=== PATIENT | male | born 1990 | race Two or more races ===

== ENCOUNTER 2024-04-19 19:34 | Inpatient (IN) | payer OTHER ==
[~2024-04-19] VITALS: Ht 182.9 cm; Wt 102.1 kg
[2024-04-19] MEDS ORDERED: 0.9% SODIUM CHLORIDE 10 ML SYRINGE IVP PRN (23:15)
[2024-04-19] MEDS: SODIUM CHLORIDE 0.9% 3,050 ML IV ONE (23:28)
[2024-04-19] MEDS: CefTRIAXone 1 GM/DEXTROSE 50 ML IV ONE (23:29)
[2024-04-19 23:38] LABS: BASOPHILS % (AUTO) 1.1 % (0.0-2.0); EOSINOPHILS % (AUTO) 0.2 % (1.0-6.0); HEMATOCRIT 24.8 % (41-53); HEMOGLOBIN 7.7 g/dL (13.5-17.5); LYMPHOCYTES % (AUTO) 17.5 % (22.0-44.0); MEAN CORPUSCULAR HEMOGLOBIN 20.3 pg (26.0-34.0); MEAN CORPUSCULAR HGB CONC 31.1 G/dL (31.0-37.0); MEAN CORPUSCULAR VOLUME 65 fL (80-100); MONOCYTES # (AUTO) 0.9 K/uL (0.1-1.0); MONOCYTES % (AUTO) 14.9 % (2.0-9.0); NEUTROPHILS % (AUTO) 66.3 % (40.0-70.0); PLATELET COUNT (AUTO) 683 K/uL (150-450); RED BLOOD CELL COUNT(AUTO) 3.78 MIL/uL (4.50-5.90); RED CELL DISTRIBUTION WIDTH 17.2 % (11.5-14.5)
[2024-04-19 23:45] LABS: ANION GAP 13 mmol/L (8-16); CALCIUM, TOTAL 8.7 mg/dL (8.8-10.5); CARBON DIOXIDE 23 mmol/L (22-29); CHLORIDE 100 mmol/L (98-107); GLOMERULAR FILTR. RATE CALC > 60 mL/min (>60); GLUCOSE,RANDOM 100 mg/dL (70-110); SODIUM SERUM 136 mmol/L (136-145); UREA NITROGEN, BLOOD 21 mg/dL (7-18)
[2024-04-19 23:51] LABS: ALANINE AMINOTRANSFERASE 47 U/L (12-78); ALBUMIN 2.7 g/dL (3.4-5.0); ALKALINE PHOSPHATASE 167 U/L (46-116); ASPARTATE AMINOTRANSFERASE 47 U/L (15-37); BILIRUBIN,TOTAL 0.3 mg/dL (0.1-1.0); TOTAL PROTEIN, SERUM 7.5 g/dL (6.4-8.2)
[2024-04-20] VITALS (8 sets, daily range): BP systolic 110–120; BP diastolic 63–78; PULSE 77–107; RESP 18–20; TEMP 98.9–103; O2SAT 95–98
[2024-04-20 00:32] LABS: RBC MORPHOLOGY COMMENT ABNORMAL RBC MORPH
[2024-04-20] MEDS ORDERED: ZOLPIDEM TARTRATE 5 MG TABLET PO PRN (01:15)
[2024-04-20] MEDS ORDERED: MAGNESIUM HYDROXIDE SUSPENSION 30 ML UDCUP PO PRN (01:15)
[2024-04-20 03:37] LABS: APPEARANCE,URINE CLEAR (CLEAR); BILIRUBIN,URINE NEGATIVE (NEGATIVE); COLOR,URINE LIGHT YELLOW (YELLOW); GLUCOSE, URINE (UA) NEGATIVE (NEGATIVE); KETONES,URINE NEGATIVE (NEGATIVE); LEUKOCYTE ESTERASE ,URINE NEGATIVE (NEGATIVE); NITRATE,URINE NEGATIVE (NEGATIVE); OCCULT BLOOD,URINE NEGATIVE (NEGATIVE); PH,URINE 5.5 (5.0-8.0); PROTEIN,URINE TRACE mg/dL (NEGATIVE); SPECIFIC GRAVITIY, URINE 1.018 (1.003-1.030); UROBILINOGEN,URINE <=1.0 mg/dL (<=1.0)
[2024-04-20] MEDS ORDERED: SODIUM CHLORIDE 0.9% 500 ML IV ONE (03:51)
[2024-04-20] MEDS: AZITHROMYCIN 500 MG/NS 250 ML IV SCH (04:00)
[2024-04-20] MEDS: ACETAMINOPHEN 325 MG TABLET PO PRN (04:01)
[2024-04-20] MEDS ORDERED: SODIUM CHLORIDE 3% 15 ML NEB SOLUTION NEB ONE ×2 (08:16→22:02)
[2024-04-20] MEDS: FERROUS SULFATE 325 MG EC TABLET PO SCH (08:18)
[2024-04-20] MEDS: MULTIVITAMINS WITH MINERALS, THERAPEUTIC TABLET PO SCH (08:18)
[2024-04-20] MEDS: FAMOTIDINE 20 MG TABLET PO SCH (08:18)
[2024-04-20] MEDS: DOCUSATE SODIUM 100 MG CAPSULE PO SCH (08:18)
[2024-04-20 11:45] LABS: MTB-RIFAMPIN RESISTANCE NOT DETECTED (Not detectd)
[2024-04-20 12:27] LABS: MTB PCR w/Rif. Resistance-SPUT DETECTED (Not Detectd)
[2024-04-20] MEDS: *CLINICAL-RX DOSING [ENTER DRUG IN COMMENTS] CLINICAL ONE (12:43)
[2024-04-20] MEDS: RIFAMPIN 300 MG CAPSULE PO SCH (15:36)
[2024-04-20] MEDS: ETHAMBUTOL HCL 400 MG TABLET PO SCH (15:37)
[2024-04-20] MEDS: ISONIAZID 300 MG TABLET PO SCH (15:37)
[2024-04-20] MEDS: PYRAZINAMIDE 500 MG TABLET PO SCH (15:38)
[2024-04-20] MEDS: CefTRIAXone 1 GM/DEXTROSE 50 ML IV SCH (23:36)
[2024-04-21 00:35] VITALS: TEMP 100.3
[2024-04-21 02:07] LABS: HIV 1-2 SCREEN 4TH GEN W/RFLX Non Reactive (Non Reactive)
[2024-04-21 04:30] VITALS: BP 104/65; PULSE 71; RESP 18; TEMP 98.4; O2SAT 99
[2024-04-21 11:03] VITALS: BP 107/58; PULSE 88; RESP 18; TEMP 98.3; O2SAT 98
[2024-04-21 16:03] LABS: MTB-RIFAMPIN RESISTANCE NOT DETECTED (Not detectd)
[2024-04-21 16:33] LABS: MTB PCR w/Rif. Resistance-SPUT DETECTED (Not Detectd)
[2024-04-21 21:44] VITALS: BP 126/77; PULSE 96; RESP 17; TEMP 98; O2SAT 98
[2024-04-22 04:05] VITALS: BP 118/68; PULSE 79; RESP 18; TEMP 98.8; O2SAT 97
[2024-04-22 07:42] LABS: INR 1.1 (0.9-1.1); PROTHROMBIN TIME 11.8 SEC (9.4-11.6)
[2024-04-22 08:40] VITALS: BP 116/60; PULSE 78; RESP 20; TEMP 98.6; O2SAT 96
[2024-04-22] MEDS: PYRIDOXINE HCL 50 MG TABLET PO SCH (17:17)
[2024-04-22 22:51] VITALS: BP 110/65; PULSE 75; RESP 18; TEMP 98.3; O2SAT 97
[2024-04-23 05:32] VITALS: BP 107/55; PULSE 81; RESP 18; TEMP 98.2; O2SAT 97
[2024-04-23 08:06] LABS: QUANTIFERON+, Nil Value 0.44 IU/mL; QUANTIFERON+,Mitogen Value 1.22 IU/mL; QUANTIFERON+,TB1 Antigen Value 1.99 IU/mL; QUANTIFERON+,TB2 Antigen Value 4.82 IU/mL; QUANTIFERON, TB GOLD PLUS Positive (Negative)
[2024-04-23 16:43] LABS: EOSINOPHILS % (AUTO) 5.8 % (1.0-6.0); HEMATOCRIT 30.2 % (41-53); HEMOGLOBIN 9.2 g/dL (13.5-17.5); LYMPHOCYTES % (AUTO) 16.9 % (22.0-44.0); MEAN CORPUSCULAR HGB CONC 30.4 G/dL (31.0-37.0); MEAN CORPUSCULAR VOLUME 66 fL (80-100); MONOCYTES # (AUTO) 0.7 K/uL (0.1-1.0); MONOCYTES % (AUTO) 11.1 % (2.0-9.0); NEUTROPHILS % (AUTO) 65.2 % (40.0-70.0); PLATELET COUNT (AUTO) 711 K/uL (150-450); RED CELL DISTRIBUTION WIDTH 17.2 % (11.5-14.5); WHITE BLOOD COUNT (AUTO) 6.2 K/uL (4.5-11.0)
[2024-04-23 16:56] LABS: PLATELET MORPHOLOGY COMMENT LARGE PLTS PRESENT; RBC MORPHOLOGY COMMENT ABNORMAL RBC MORPH
[2024-04-23 19:46] VITALS: BP 141/82; PULSE 89; RESP 18; TEMP 99.7; O2SAT 98
[2024-04-24 08:11] VITALS: BP 115/59; PULSE 82; RESP 20; TEMP 98.1; O2SAT 98
[2024-04-24 22:08] VITALS: BP 133/76; PULSE 84; RESP 17; TEMP 98.4; O2SAT 98
[2024-04-25 19:40] VITALS: BP 125/65; PULSE 95; RESP 18; TEMP 98.3; O2SAT 96
[2024-04-26] VITALS (7 sets, daily range): BP systolic 118–137; BP diastolic 68–79; PULSE 74–100; RESP 18–20; TEMP 97.8–99; O2SAT 99–100
[2024-04-26] MEDS ORDERED: LIDOCAINE/PF 1% 30 ML VIAL ONE (11:28)
[2024-04-26] MEDS ORDERED: FentaNYL CITRATE PF 100 MCG/2 ML VIAL ONE (11:32)
[2024-04-26] MEDS ORDERED: MIDAZOLAM HCL 2 MG/2 ML VIAL ONE (11:32)
[2024-04-26] MEDS: MIDAZOLAM HCL 2 MG/2 ML VIAL IVP ONE (13:47)
[2024-04-26] MEDS: LIDOCAINE 1% 30 ML/SOD BICARB 8.4% 4 ML SQ ONE (13:47)
[2024-04-26] MEDS: HYDROCODONE/ACETAMINOPHEN 5-325 MG TABLET PO PRN (13:47)
[2024-04-26] MEDS: FentaNYL CITRATE PF 100 MCG/2 ML VIAL IVP ONE (13:47)
[2024-04-26 14:04] LABS: SPECIMENTYPE,BODY FLUID PLEURAL
[2024-04-26 14:28] LABS: APPEARANCE,UNSPUN,BODY FLUID HAZY (CLEAR)
[2024-04-26 14:29] LABS: APPEARANCE,SPUN,BODY FLUID CLEAR (CLEAR); COLOR,BODY FLUID YELLOW (LT YELLOW); TOTAL VOLUME,BODY FLUID 75 mL
[2024-04-26 15:08] LABS: BASOPHILS,BODY FLUID 0 %; EOSINOPHILS,BF (ANAL) 0 %; LYMPHOCYTES,BODY FLUID 74 %; MONOCYTES,BODY FLUID 9 %; NEUTROPHILS,BODY FLUID 1 %; OTHER CELLS,BODY FLUID MESOTHELIALS; WBC, BODY FLUID 930 /cu. mm.
[2024-04-26 15:15] LABS: PH, BODY FLUID 8
[2024-04-27 04:25] VITALS: BP 112/70; PULSE 86; RESP 18; TEMP 98.1; O2SAT 97
[2024-04-27 09:24] VITALS: BP 113/75; PULSE 79; RESP 20; TEMP 97.6; O2SAT 98
[2024-04-27 13:08] LABS: TOTAL PROTEIN,BODY FLUID,REF 5.9 g/dL; URIC ACID, BODY FLUID,REF 14.3 mg/dL
[2024-04-27] MEDS: MORPHINE SULFATE 2 MG/ML SYRINGE IVP PRN (13:41)
[2024-04-27 20:20] VITALS: BP 110/94; PULSE 101; RESP 19; TEMP 97.9; O2SAT 97
[2024-04-28 05:12] VITALS: BP 115/69; PULSE 79; RESP 18; TEMP 98.2; O2SAT 99
[2024-04-28] MEDS: HYDROCODONE/ACETAMINOPHEN 5-325 MG TABLET PO PRN (06:36)
[2024-04-28 08:19] VITALS: BP 119/73; PULSE 82; RESP 20; TEMP 98.3; O2SAT 98
[2024-04-28 20:15] VITALS: BP 131/69; PULSE 79; RESP 18; TEMP 98.2; O2SAT 98
[2024-04-29 05:15] VITALS: BP 140/72; PULSE 79; RESP 16; TEMP 98.6; O2SAT 100
[2024-04-29 07:11] LABS: BASOPHILS % (AUTO) 1.1 % (0.0-2.0); HEMATOCRIT 31.6 % (41-53); HEMOGLOBIN 9.8 g/dL (13.5-17.5); LYMPHOCYTES % (AUTO) 14.8 % (22.0-44.0); MEAN CORPUSCULAR HEMOGLOBIN 20.6 pg (26.0-34.0); MEAN CORPUSCULAR HGB CONC 30.9 G/dL (31.0-37.0); MEAN CORPUSCULAR VOLUME 67 fL (80-100); MONOCYTES # (AUTO) 0.6 K/uL (0.1-1.0); MONOCYTES % (AUTO) 9.9 % (2.0-9.0); NEUTROPHILS # (AUTO) 4.3 K/uL (1.8-7.7); NEUTROPHILS % (AUTO) 66.2 % (40.0-70.0); PLATELET COUNT (AUTO) 605 K/uL (150-450); RED BLOOD CELL COUNT(AUTO) 4.73 MIL/uL (4.50-5.90); RED CELL DISTRIBUTION WIDTH 18.4 % (11.5-14.5); WHITE BLOOD COUNT (AUTO) 6.5 K/uL (4.5-11.0)
[2024-04-29 07:25] LABS: ANION GAP 12 mmol/L (8-16); CALCIUM, TOTAL 8.8 mg/dL (8.8-10.5); CARBON DIOXIDE 25 mmol/L (22-29); CHLORIDE 100 mmol/L (98-107); CREATININE 0.92 mg/dL (0.60-1.30); GLOMERULAR FILTR. RATE CALC > 60 mL/min (>60); GLUCOSE,RANDOM 89 mg/dL (70-110); POTASSIUM 4.2 mmol/L (3.5-5.1); SODIUM SERUM 137 mmol/L (136-145); UREA NITROGEN, BLOOD 12 mg/dL (7-18)
[2024-04-29 08:22] LABS: RBC MORPHOLOGY COMMENT ABNORMAL RBC MORPH
[2024-04-29 12:00] VITALS: BP 134/70; PULSE 75; TEMP 98.5; O2SAT 100
[2024-04-29 17:07] VITALS: BP 112/76; PULSE 76; TEMP 98.7; O2SAT 100
[2024-04-29 19:50] VITALS: BP 136/77; PULSE 87; RESP 18; TEMP 98.2; O2SAT 99
[2024-04-30 04:05] VITALS: BP 123/71; PULSE 68; RESP 18; TEMP 98.8; O2SAT 98
[2024-04-30 12:00] VITALS: BP 127/73; PULSE 85; RESP 18; TEMP 98.3; O2SAT 98
[2024-04-30 17:30] VITALS: BP 118/75; PULSE 72; RESP 18; TEMP 98.2; O2SAT 98
[2024-04-30 19:45] VITALS: BP 120/77; PULSE 92; RESP 16; TEMP 98.7; O2SAT 99
[2024-05-01 09:11] VITALS: BP 123/68; PULSE 83; RESP 16; TEMP 97.6; O2SAT 98
[2024-05-01 19:53] VITALS: BP 128/71; PULSE 93; RESP 18; TEMP 98.3; O2SAT 96
[2024-05-02 05:23] VITALS: BP 117/70; PULSE 67; RESP 18; TEMP 98.1; O2SAT 99
[2024-05-02 09:02] VITALS: BP 110/61; PULSE 87; RESP 18; TEMP 97.8
[2024-05-02 19:41] VITALS: BP 123/69; PULSE 84; RESP 18; TEMP 98.3; O2SAT 97
[2024-05-03 06:20] VITALS: BP 117/68; PULSE 73; RESP 20; TEMP 98.4; O2SAT 97
[2024-05-03 07:43] VITALS: BP 124/63; PULSE 73; RESP 18; TEMP 98.6; O2SAT 99
[2024-05-03 20:41] VITALS: BP 118/66; PULSE 78; RESP 20; TEMP 98.5; O2SAT 98
[2024-05-04 06:36] VITALS: BP 111/62; PULSE 72; RESP 20; TEMP 98.6; O2SAT 98
[2024-05-04 09:00] VITALS: BP 127/76; PULSE 73; RESP 20; TEMP 97.7; O2SAT 100
[2024-05-04 20:02] VITALS: BP 126/76; PULSE 93; RESP 20; TEMP 98.3; O2SAT 98
[2024-05-05 03:27] VITALS: BP 116/67; PULSE 68; RESP 19; TEMP 98.5; O2SAT 98
[2024-05-05 07:51] LABS: BASOPHILS % (AUTO) 0.9 % (0.0-2.0); EOSINOPHILS % (AUTO) 6.4 % (1.0-6.0); HEMATOCRIT 35.6 % (41-53); HEMOGLOBIN 10.7 g/dL (13.5-17.5); LYMPHOCYTES # (AUTO) 0.9 K/uL (1.0-4.8); LYMPHOCYTES % (AUTO) 17.1 % (22.0-44.0); MEAN CORPUSCULAR HEMOGLOBIN 20.8 pg (26.0-34.0); MEAN CORPUSCULAR VOLUME 69 fL (80-100); MONOCYTES # (AUTO) 0.6 K/uL (0.1-1.0); MONOCYTES % (AUTO) 12.2 % (2.0-9.0); NEUTROPHILS # (AUTO) 3.3 K/uL (1.8-7.7); NEUTROPHILS % (AUTO) 63.4 % (40.0-70.0); PLATELET COUNT (AUTO) 463 K/uL (150-450); RED BLOOD CELL COUNT(AUTO) 5.14 MIL/uL (4.50-5.90); RED CELL DISTRIBUTION WIDTH 22.9 % (11.5-14.5); WHITE BLOOD COUNT (AUTO) 5.3 K/uL (4.5-11.0)
[2024-05-05 08:22] LABS: ANION GAP 12 mmol/L (8-16); CALCIUM, TOTAL 8.8 mg/dL (8.8-10.5); CARBON DIOXIDE 25 mmol/L (22-29); CHLORIDE 101 mmol/L (98-107); CREATININE 0.91 mg/dL (0.60-1.30); GLOMERULAR FILTR. RATE CALC > 60 mL/min (>60); GLUCOSE,RANDOM 85 mg/dL (70-110); POTASSIUM 4.1 mmol/L (3.5-5.1); SODIUM SERUM 138 mmol/L (136-145); UREA NITROGEN, BLOOD 13 mg/dL (7-18)
[2024-05-05 09:22] LABS: RBC MORPHOLOGY COMMENT ABNORMAL RBC MORPH
[2024-05-05 20:57] VITALS: BP 109/75; PULSE 78; RESP 16; TEMP 98.8; O2SAT 99
[2024-05-06 04:00] VITALS: BP 115/67; PULSE 78; RESP 16; TEMP 98.5; O2SAT 98
[2024-05-06 09:03] VITALS: BP 126/76; PULSE 89; RESP 18; TEMP 98; O2SAT 98
[2024-05-06 15:33] LABS: ANION GAP 10 mmol/L (8-16); CALCIUM, TOTAL 8.7 mg/dL (8.8-10.5); CARBON DIOXIDE 27 mmol/L (22-29); CHLORIDE 103 mmol/L (98-107); CREATININE 1.18 mg/dL (0.60-1.30); GLOMERULAR FILTR. RATE CALC > 60 mL/min (>60); GLUCOSE,RANDOM 102 mg/dL (70-110); POTASSIUM 3.8 mmol/L (3.5-5.1); SODIUM SERUM 140 mmol/L (136-145); UREA NITROGEN, BLOOD 12 mg/dL (7-18)
[2024-05-06 15:39] LABS: ALANINE AMINOTRANSFERASE 30 U/L (12-78); ALBUMIN 3.1 g/dL (3.4-5.0); ALKALINE PHOSPHATASE 139 U/L (46-116); ASPARTATE AMINOTRANSFERASE 27 U/L (15-37); BILIRUBIN,TOTAL 0.3 mg/dL (0.1-1.0); TOTAL PROTEIN, SERUM 7.5 g/dL (6.4-8.2)
[2024-05-06 20:15] VITALS: BP 119/71; PULSE 86; RESP 19; TEMP 99.1; O2SAT 98
[2024-05-06] MEDS ORDERED: SODIUM CHLORIDE 3% 15 ML NEB SOLUTION NEB ONE (20:33)
[2024-05-06 21:00] VITALS: PULSE 92; RESP 18; O2SAT 98
[2024-05-07] MEDS ORDERED: SODIUM CHLORIDE 3% 15 ML NEB SOLUTION NEB ONE (05:17)
[2024-05-07 06:19] VITALS: BP 98/65; PULSE 88; RESP 18; TEMP 98.5; O2SAT 99
[2024-05-07 07:37] VITALS: BP 125/71; PULSE 73; RESP 18; TEMP 98.7; O2SAT 98
[2024-05-07 20:02] VITALS: BP 123/74; PULSE 84; RESP 20; TEMP 98.8; O2SAT 98
[2024-05-08 04:50] VITALS: BP 116/67; PULSE 68; RESP 18; TEMP 97.8; O2SAT 96
[2024-05-08 08:43] VITALS: BP 112/66; PULSE 74; RESP 19; TEMP 98.7; O2SAT 95
[2024-05-08 16:23] VITALS: BP 117/71; PULSE 71; RESP 19; TEMP 98.8; O2SAT 99
[2024-05-08 20:02] VITALS: BP 115/69; PULSE 78; RESP 19; TEMP 98.3; O2SAT 98
[2024-05-09 05:06] VITALS: BP 124/75; PULSE 66; RESP 18; TEMP 98.1; O2SAT 99
[2024-05-09 08:56] VITALS: BP 127/78; PULSE 88; RESP 20; TEMP 97.9; O2SAT 97
[2024-05-09 15:08] VITALS: BP 129/78; PULSE 77; RESP 19; TEMP 98.4; O2SAT 98
[2024-05-09 20:01] VITALS: BP 132/80; PULSE 88; RESP 18; TEMP 98.7; O2SAT 97
[2024-05-10 05:11] VITALS: BP 123/61; PULSE 68; RESP 18; TEMP 98.6; O2SAT 98
[2024-05-10 07:46] VITALS: BP 113/61; PULSE 66; RESP 18; TEMP 98.5; O2SAT 98
[2024-05-10] MEDS ORDERED: DOCU-385 PO (16:07)
[2024-05-10] MEDS ORDERED: ETHA400T25 PO (16:08)
[2024-05-10] MEDS ORDERED: FAMO20 PO (16:09)
[2024-05-10] MEDS ORDERED: FERR325T27 PO (16:09)
[2024-05-10] MEDS ORDERED: ISON300T18 PO (16:10)
[2024-05-10] MEDS ORDERED: MULT-14 PO (16:10)
[2024-05-10] MEDS ORDERED: PYRA500T33 PO (16:11)
[2024-05-10] MEDS ORDERED: PYRI-9 PO (16:11)
[2024-05-10] MEDS ORDERED: RIFA300C63 PO (16:12)
[2024-05-10] MEDS ORDERED: ACET-2247 PO (16:16)
[2024-05-10] MEDS ORDERED: MAGN-169 PO (16:18)
[2024-05-10] MEDS ORDERED: ZOLP-280 PO (16:19)
== END 2024-05-10 18:38 | DRG 871 ==
LOC: EMS 19:34 → EDH 04-20 01:13 → 5N 04-20 03:13 → 6S 04-20 13:15
PROVIDERS: ADMIT Internal Medicine; ATTEND Internal Medicine
PROC: 0W9930Z Drainage of Right Pleural Cavity with Drainage Device, Percutaneous Approach (ICD-10-PCS; principal; 2024-04-26)
PROC: 0WP9X0Z Removal of Drainage Device from Right Pleural Cavity, External Approach (ICD-10-PCS; 2024-05-05)
DX: A41.9 Sepsis, unspecified organism (principal); J18.9 Pneumonia, unspecified organism; A15.0 Tuberculosis of lung; J90 Pleural effusion, not elsewhere classified; E66.9 Obesity, unspecified; D50.9 Iron deficiency anemia, unspecified; D75.839 Thrombocytosis, unspecified; N62 Hypertrophy of breast; Z68.30 Body mass index [BMI] 30.0-30.9, adult; Z53.9 Procedure and treatment not carried out, unspecified reason
CPT/HCPCS: 71045; 71046; 71250; 75989; 77012; 80048; 80053; 81003; 82248; 82465; 82570; 82945; 83605; 83615; 83986; 84145; 84157; 84311; 84478; 84560; 85025; 85610; 85730; 86480; 87015; 87040; 87070; 87075; 87116; 87150; 87205; 87206; 87389; 87556; 89051; 93005; 94640; 99241; 99285; J0456; J0696; J2250; J2270; J3010; J3490; J7030; J7040; 36415-L1; 36415-TC; Z7500